=== PATIENT | female | born 1965 | race Caucasian/White ===

== ENCOUNTER 2018-01-26 13:58 | Emergency (ER) | payer BC, OTHER ==
[~2018-01-26] VITALS: Ht 162.6 cm; Wt 79.8 kg
[2018-01-26 14:09] VITALS: Ht 162.6 cm; Wt 79.8 kg
[2018-01-26 19:32] VITALS: BP 154/93
== END 2018-01-26 19:32 | disposition home or self-care (01) ==
LOC: ED 13:58
DX: M62.838 Other muscle spasm (principal); G93.5 Compression of brain; G95.0 Syringomyelia and syringobulbia; I10 Essential (primary) hypertension
CPT/HCPCS: J1885; J2060; J3010; Q0162